=== PATIENT | female | born 1940 | race African-American/Black ===

== ENCOUNTER 2019-05-08 05:33 | Day surgery (SDC) | payer MEDICARE, MEDICAID ==
--- NOTE | 2019-05-07 09:22 | HP ---
HISTORY OF PRESENT ILLNESS: The patient is a 78-year-old female with several year history of progressive pain and numbness in the median nerve distribution of her left hand. She has had symptoms for several years, but has gotten worse over the past year. She has had persistent symptoms despite restriction of activities, anti-inflammatory medications, splinting and cortisone injection. 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 She also has a history of hypertension, hypothyroidism, depression, type 2 diabetes, reflux, sleep apnea, and some chronic renal disease. ALLERGIES: SHE IS ALLERGIC TO BENADRYL, LISINOPRIL. FAMILY HISTORY: Otherwise unremarkable. SOCIAL HISTORY: Otherwise unremarkable. REVIEW OF SYSTEMS: Otherwise unremarkable. MEDICATIONS: Her current medications include; 1. Magnesium. 2. Folic acid. 3. Omeprazole. 4. Metoprolol. 5. Losartan. 6. Montelukast. 7. Potassium. 8. Hydrochlorothiazide. 9. Meclizine. 10. . 11. Low-dose aspirin. 12. Hydralazine. 13. Torsemide. 14. . 15. Levothyroxine. PHYSICAL EXAMINATION: GENERAL: Reveals an elderly female. HEENT: Unremarkable. NECK: Supple. CHEST: Clear. HEART: Regular rate and rhythm. ABDOMEN: Soft, nontender. PELVIC: Deferred. RECTAL: Deferred. BREAST: Deferred. EXTREMITIES: Pertinent findings in the left upper extremity and left wrist. There is no swelling. There is no definite atrophy. There is no bony tenderness. There is no instability. There is a negative Tinel's and positive Phalen test. There is decreased sensation in the median nerve distribution. Brisk capillary refill. No definite motor deficit. Nerve conduction studies performed in September of this year revealed mildly severe left carpal tunnel syndrome. IMPRESSION: Left carpal tunnel syndrome. PLAN: Endoscopic possible open left carpal tunnel release. The nature of the surgery, length of recovery, and potential complications such as infection, loss of motion, incomplete relief, nerve injury, recurrence, need for additional treatment and repeat surgery have been discussed in detail. Job ID: [id number]
[2019-05-07 13:32] VITALS: BMI 35.9
[2019-05-08] MEDS ORDERED: Lidocaine 1% (PF) 30 ML VIAL ONE (06:31)
[2019-05-08 07:02] LABS: #Eosinphils 0.2 thou/uL (0.0-0.7); #Lymphocytes 1.9 thou/uL (1.20-3.40); #Monocytes 0.6 thou/uL (0.11-0.59); %Basophils 0.4 % (0.0-1.0); %Lymphocytes 24.7 % (21.0-51.0); %Monocytes 7.7 % (0.0-10.0); %Neutrophils 64.3 % (42.0-75.0); Hemoglobin 11.7 g/dL (12.0-16.0); Mean Corpuscular HGB CONC 31.1 g/dL (32.0-36.0); Mean Corpuscular Hemoglobin 29.4 pg (27.0-31.0); Mean Corpuscular Volume 94.8 fL (78.0-98.0); Mean Platelet Volume 8.3 fL (7.4-10.4); Platelet Count 156 thou/uL (130-400); Red Blood Cell (RBC) Count 3.96 mill/uL (4.20-5.40); White Blood Cell (WBC) Count 7.7 thou/uL (4.8-10.8)
[2019-05-08 07:22] LABS: Anion Gap 14 mmol/L (10-20); BUN (Urea Nitrogen) 31 mg/dL (9.8-20.1); Calc. Creatinine Clearance 49 mL/min (70-130); Calcium 9.7 mg/dL (7.8-10.44); Carbon Dioxide 22 mmol/L (23-31); Chloride 109 mmol/L (98-107); Estimated GFR-MDRD 44; Glucose 105 mg/dL (83-110); Potassium 4.6 mmol/L (3.5-5.1); Sodium 140 mmol/L (136-145)
[2019-05-08] MEDS ORDERED: Fentanyl 100 MCG/2 ML VIAL ONE (07:57)
[2019-05-08] MEDS ORDERED: Succinylcholine Chloride 20 MG/ML 10 ml SYRINGE FS ONE (11:40)
[2019-05-08] MEDS ORDERED: PROPOFOL 200 MG/20 ML VIAL ONE (11:40)
[2019-05-08] MEDS ORDERED: Lidocaine 1% PF 5 ML VIAL ONE (11:40)
[2019-05-08] MEDS ORDERED: Glycopyrrolate 0.2 MG/ML 5 ML SYRINGE ONE (11:40)
--- NOTE | 2019-05-08 11:51 | OP ---
DATE OF PROCEDURE: 05/08/2019 ANESTHESIA: General. PREOPERATIVE DIAGNOSIS: Left carpal tunnel syndrome. POSTOPERATIVE DIAGNOSIS: Left carpal tunnel syndrome. PROCEDURE: Left endoscopic carpal tunnel release. DESCRIPTION OF PROCEDURE: After satisfactory anesthesia was induced in supine position, the patient was prepped and draped in routine manner. The left arm was elevated and exsanguinated with an Esmarch bandage and the tourniquet inflated to 250 mmHg. A 2 cm transverse incision was made in the proximal wrist flexion crease, carried down through the subcutaneous tissues. Bleeding points were controlled with Bovie cautery. Using sharp and blunt dissection, a distally based flap at deep forearm fascia was developed and retracted distally. Palmaris longus tendon was retracted radially. Proximal edge of the deep forearm fascia was split under direct visualization with small scissors to make sure there was no proximal impingement on the median nerve. Synovium elevator was introduced beneath the transverse carpal ligament, and the synovium was cleaned from the undersurface. Carpal tunnel dilators were inserted. The [employer] endoscopic carpal tunnel system was introduced beneath the transverse carpal ligament in line with the ring finger. The distal edge of the ligament was easily identified and then divided in a distal to proximal direction by pulling the trigger of the assembly and engaging the knife and withdrawing the scope proximally. This was done at several stages to make sure there was complete division of the transverse carpal ligament which was documented with video printer. After withdrawing the scope, the carpal tunnel dilator could be inserted into the carpal tunnel where there was markedly improved passage and subcutaneous position of the instrument. The scope was reintroduced in the carpal tunnel. There was wide separation of the 2 leaves of the transverse carpal ligament. The tourniquet was released after 6 minutes. There was no excessive bleeding. The scope was withdrawn. The wound was then thoroughly irrigated and closed with running subcuticular 3-0 nylon. Sterile dressing was applied. The patient immobilized in a Velcro wrist splint and awakened, taken to recovery room in stable condition. There were no apparent intraoperative complications. The estimated blood loss was negligible. The patient will be discharged home in satisfactory condition, instructed on ice and elevation, given written wound care instructions. She was given a prescription for Republic 5 for pain, 15 tablets. She will be rechecked in my office in approximately 2 weeks or sooner if there are any problems prior to that time. Job ID: [id number]
== END 2019-05-08 10:53 | disposition home or self-care (01) ==
LOC: SDC 05:33
PROVIDERS: ATTEND Orthopaedic Surgery
PROC: 01N54ZZ Release Median Nerve, Percutaneous Endoscopic Approach (ICD-10-PCS; principal; 2019-05-08)
DX: G56.02 Carpal tunnel syndrome, left upper limb (principal); I12.9 Hypertensive chronic kidney disease with stage 1 through stage 4 chronic kidney disease, or unspecified chronic kidney disease; E11.22 Type 2 diabetes mellitus with diabetic chronic kidney disease; N18.9 Chronic kidney disease, unspecified; E78.5 Hyperlipidemia, unspecified; J44.9 Chronic obstructive pulmonary disease, unspecified; G47.30 Sleep apnea, unspecified; M17.11 Unilateral primary osteoarthritis, right knee; F32.9 Major depressive disorder, single episode, unspecified; F41.9 Anxiety disorder, unspecified; K21.9 Gastro-esophageal reflux disease without esophagitis; I69.351 Hemiplegia and hemiparesis following cerebral infarction affecting right dominant side; Z79.82 Long term (current) use of aspirin; Z79.899 Other long term (current) drug therapy; Z88.8 Allergy status to other drugs, medicaments and biological substances; Z99.89 Dependence on other enabling machines and devices
CPT/HCPCS: 36415; 80048; 85025; 93005; 93010; J0690; J2001; J2704; J3010

== ENCOUNTER 2021-12-02 10:17 | Outpatient (CLI) | payer MEDICARE, MEDICAID ==
[2021-12-02 11:33] LABS: Hemoglobin 11.6 g/dL (12.0-15.5); Mean Corpuscular Hemoglobin 29.7 pg (27.0-33.0); Mean Corpuscular Volume 95.7 fl (81.6-98.3); Mean Platelet Volume 10.8 fl (7.4-10.4); Platelet Count 160 10x3/uL (150-450); RBC Distribution Width 13.6 % (11.5-14.5); Red Blood Cell (RBC) Count 3.91 10x6/uL (3.90-5.03); White Blood Cell (WBC) Count 6.1 10x3/uL (3.5-10.5)
[2021-12-02 11:50] LABS: Anion Gap 13 mmol/L (10-20); BUN (Urea Nitrogen) 25 mg/dL (9.8-20.1); Calc. Creatinine Clearance 0 mL/min (70-130); Carbon Dioxide 29 mmol/L (23-31); Chloride 107 mmol/L (98-107); Estimated GFR 43; Glucose 93 mg/dL (83-110); Potassium 4.1 mmol/L (3.5-5.1); Sodium 145 mmol/L (136-145)
== END 2021-12-02 10:18 | disposition home or self-care (01) ==
LOC: LABBT 10:17
PROVIDERS: ATTEND Thoracic Surgery (Cardiothoracic Vascular Surgery)
DX: Z01.812 Encounter for preprocedural laboratory examination (principal); I65.21 Occlusion and stenosis of right carotid artery; Z20.822 Contact with and (suspected) exposure to COVID-19
CPT/HCPCS: 80048; 85027; 87811

== ENCOUNTER 2021-12-06 09:28 | Inpatient (IN) | payer MEDICARE, MEDICAID ==
[2021-12-06] MEDS ORDERED: fentaNYL Citrate/PF 100 MCG/2 ML SYRINGE ONE (10:30)
[2021-12-06] MEDS ORDERED: Bupivacaine PF 0.5% 30 ML VIAL ONE (11:11)
[2021-12-06] MEDS ORDERED: EPINEPHrine 1 MG/ML AMP ONE (11:11)
[2021-12-06] MEDS ORDERED: Protamine Sulfate 50 MG/5 ML VIAL ONE (11:11)
[2021-12-06] MEDS ORDERED: Heparin 5,000 UNITS/ML VIAL ONE (11:11)
[2021-12-06] MEDS ORDERED: Sodium Chloride 0.9% 100 ML ONE (11:41)
[2021-12-06] MEDS ORDERED: CEFAZOLIN 2 GM VIAL ONE (11:41)
[2021-12-06] MEDS ORDERED: Dexamethasone 20 MG/5 ML VIAL ONE (12:27)
[2021-12-06] MEDS ORDERED: PROPOFOL 200 MG/20 ML VIAL ONE (12:27)
[2021-12-06] MEDS ORDERED: Lidocaine 1% PF 5 ML VIAL ONE (12:27)
[2021-12-06] MEDS ORDERED: Rocuronium Bromide 10 MG/ML (10ML VIAL) ONE (12:27)
[2021-12-06] MEDS ORDERED: Ondansetron PF 4 MG/2 ML Vial ONE (12:27)
[2021-12-06] MEDS ORDERED: Glycopyrrolate 0.2 MG/ML 5 ML SYRINGE ONE (12:27)
[2021-12-06] MEDS ORDERED: Fentanyl 100 MCG/2 ML VIAL ONE (15:30)
[2021-12-06] MEDS ORDERED: traMADol HCl 50 MG TAB PO PRN (15:36)
[2021-12-06] MEDS ORDERED: Acetaminophen 325 MG TAB PO PRN (15:36)
[2021-12-06] MEDS ORDERED: Phenylephrine 40 MG in Sodium Chloride 0.9% 250 ML 250 ML IVPB PRN (15:36)
[2021-12-06] MEDS ORDERED: Insulin Regular 300 UNITS/3 ML VIAL SC PRN (15:36)
[2021-12-06] MEDS ORDERED: Ondansetron PF 4 MG/2 ML Vial IVP PRN (15:36)
[2021-12-06] MEDS ORDERED: Sodium Chloride 0.9% 1,000 ML IV SCH (15:45)
[2021-12-06 16:32] VITALS: BMI 34.5
[2021-12-06] MEDS: CEFAZOLIN 2 GM in Sodium Chloride 0.9% 100 ML IVPB SCH ×2 (17:39→23:31)
[2021-12-06] MEDS: hydrALAZINE 25 MG TAB PO SCH (18:22)
[2021-12-06] MEDS ORDERED: Amlodipine 10 MG TAB PO SCH (20:00)
[2021-12-06 20:20] VITALS: BP 183/68
[2021-12-06] MEDS ORDERED: Atorvastatin Calcium 20 MG TAB PO SCH (21:00)
[2021-12-07] MEDS ORDERED: Levothyroxine 150 MCG TAB PO SCH (06:00)
[2021-12-07] MEDS: CEFAZOLIN 2 GM in Sodium Chloride 0.9% 100 ML IVPB SCH (06:58)
[2021-12-07 08:27] VITALS: TEMP 98.4
[2021-12-07] MEDS: hydrALAZINE 25 MG TAB PO SCH (08:54)
[2021-12-07] MEDS ORDERED: Amlodipine 10 MG TAB PO SCH (09:00)
[2021-12-07] MEDS ORDERED: Aspirin Chewable 81 MG TAB PO SCH (09:00)
[2021-12-07] MEDS ORDERED: Torsemide 20 MG TAB PO SCH (09:00)
== END 2021-12-07 09:38 | disposition home or self-care (01) | DRG 38 ==
LOC: SDC 09:28 → CCU 16:02
PROVIDERS: ADMIT Thoracic Surgery (Cardiothoracic Vascular Surgery); ATTEND Thoracic Surgery (Cardiothoracic Vascular Surgery)
PROC: 03CH0ZZ Extirpation of Matter from Right Common Carotid Artery, Open Approach (ICD-10-PCS; principal; 2021-12-06)
PROC: 03UH0KZ Supplement Right Common Carotid Artery with Nonautologous Tissue Substitute, Open Approach (ICD-10-PCS; 2021-12-06)
DX: I65.21 Occlusion and stenosis of right carotid artery (principal); G81.91 Hemiplegia, unspecified affecting right dominant side; Z20.822 Contact with and (suspected) exposure to COVID-19; E78.5 Hyperlipidemia, unspecified; I10 Essential (primary) hypertension; E03.9 Hypothyroidism, unspecified; J44.9 Chronic obstructive pulmonary disease, unspecified; E11.9 Type 2 diabetes mellitus without complications; Z88.8 Allergy status to other drugs, medicaments and biological substances; Z90.09 Acquired absence of other part of head and neck; Z90.49 Acquired absence of other specified parts of digestive tract; Z79.82 Long term (current) use of aspirin; Z79.890 Hormone replacement therapy; Z79.899 Other long term (current) drug therapy; Z79.84 Long term (current) use of oral hypoglycemic drugs; Z79.51 Long term (current) use of inhaled steroids
CPT/HCPCS: 36416; 71045; 93005; 93010; C1713; C1751; C1768; C1776; J0171; J0690; J1100; J1642; J1644; J2405; J2704; J2710; J2720; J3010; J3490; S0020